=== PATIENT | female | born 1985 | race Two or more races ===

== ENCOUNTER 2022-10-09 17:40 | Emergency (ER) | payer MEDICAID ==
[~2022-10-09] VITALS: Ht 162.6 cm; Wt 79.5 kg
[2022-10-09 17:58] VITALS: BP 127/69
== END 2022-10-09 22:10 | disposition home or self-care (01) ==
LOC: ER 17:40
DX: S93.402A Sprain of unspecified ligament of left ankle, initial encounter (principal); M25.572 Pain in left ankle and joints of left foot; Z72.89 Other problems related to lifestyle; Z98.890 Other specified postprocedural states; Z88.8 Allergy status to other drugs, medicaments and biological substances; W19.XXXA Unspecified fall, initial encounter; Y93.89 Activity, other specified; Y92.89 Other specified places as the place of occurrence of the external cause; Y99.8 Other external cause status
CPT/HCPCS: 73610; 99283; A6449

== ENCOUNTER 2023-07-11 12:07 | Emergency (ER) | payer MEDICAID ==
[~2023-07-11] VITALS: Ht 165.1 cm; Wt 90.0 kg
[2023-07-11 12:10] VITALS: BP 119/76; PULSE 70; RESP 18; TEMP 97.8; O2SAT 99
== END 2023-07-11 14:48 | disposition left against medical advice (07) ==
LOC: ER 12:08
DX: M25.562 Pain in left knee (principal); Z53.21 Procedure and treatment not carried out due to patient leaving prior to being seen by health care provider
CPT/HCPCS: 73564; 99281